=== PATIENT | male | born 1955 | race Caucasian/White ===

== ENCOUNTER 2016-05-27 06:28 | Observation (INO) | payer OTHER ==
[2016-05-21 11:34] VITALS: BMI 21.2
[~2016-05-27 06:28] MED LIST: DEXAMETHASONE SOD PHOSPHATE 10 MG/ML 1 ML VIAL IV ONE; HYDROmorphone 1 MG/ML 1 ML SYRINGE IVP PRN; LACTATED RINGERS 1,000 ML IV SCH; MIDAZOLAM 2 MG/2 ML VIAL IV PRN; ONDANSETRON 4 MG/2 ML VIAL IVP ONE
[2016-05-27] MEDS: LACTATED RINGERS 1,000 ML IV SCH ×2 (07:02→10:16)
[2016-05-27] MEDS ORDERED: LIDOCAINE 1% 20 ML VIAL (10MG/ML) FOR IV START INTRADERMA ONE (07:02)
[2016-05-27] MEDS ORDERED: SCOPOLAMINE 1.5MG/72HR PATCH TRANSDERM ONE (07:11)
[2016-05-27] MEDS ORDERED: MIDAZOLAM 2 MG/2 ML VIAL IV ONE (07:22)
[2016-05-27] MEDS ORDERED: fentaNYL (PF) 50 MCG/ML 2 ML AMP IV ONE (07:22)
[2016-05-27] MEDS ORDERED: MIDAZOLAM 2 MG/2 ML VIAL ONE (07:50)
[2016-05-27] MEDS ORDERED: CLINDAMYCIN 150 MG/ML 6 ML VIAL ONE (07:50)
[2016-05-27] MEDS ORDERED: SODIUM CHLORIDE 0.9% 1,000 ML BAG ONE (07:50)
[2016-05-27] MEDS ORDERED: LIDOCAINE 1% INJ 10MG/ML (20 ML MDV) ONE (07:50)
[2016-05-27] MEDS ORDERED: ROPIVACAINE 5 MG/ML 30 ML VIAL ONE (07:50)
[2016-05-27] MEDS ORDERED: SUCCINYLCHOLINE CHLORIDE 100 MG/5 ML SYR IV ONE (07:50)
[2016-05-27] MEDS ORDERED: PROPOFOL 10 MG/ML 20 ML VIAL IV ONE (07:50)
[2016-05-27] MEDS ORDERED: PHENYLEPHRINE-0.9% NACL SYG 1 MG/10 ML SYRINGE ONE (07:50)
[2016-05-27] MEDS ORDERED: LIDOCAINE 2%-EPI 1:100,000 20 ML VIAL ONE (07:50)
[2016-05-27] MEDS ORDERED: fentaNYL (PF) 50 MCG/ML 2 ML AMP ONE (07:50)
[2016-05-27] MEDS: CLINDAMYCIN 900 MG in DEXTROSE 5% IN WATER 50 ML IVPB ONE ×4 (07:50→09:56)
[2016-05-27] MEDS: CLINDAMYCIN 600 MG in SODIUM CHLORIDE 0.9% 1,000 ML IRRIGATION ONE ×2 (08:12→09:56)
[2016-05-27] MEDS ORDERED: ONDANSETRON 4 MG/2 ML VIAL IVP PRN (09:20)
[2016-05-27] MEDS ORDERED: HYDROmorphone 1 MG/ML 1 ML SYRINGE IVP PRN ×2 (09:20)
[2016-05-27] MEDS ORDERED: SENNOSIDES-DOCUSATE SODIUM 1 EACH TAB PO PRN (09:20)
[2016-05-27] MEDS ORDERED: TEMAZEPAM 15 MG CAP PO PRN (09:20)
[2016-05-27] MEDS ORDERED: traMADol 50 MG TAB PO PRN (09:23)
[2016-05-27 09:46] VITALS: RESP 16
[2016-05-27] MEDS: NICOTINE 21MG/24HR PATCH TRANSDERM SCH (10:16)
--- NOTE | 2016-05-27 10:37 | P.ONQ ---
Anesthesiology Proc Note - PNB - Peripheral Nerve Block Performed Right Interscalene Single Time Out Performed: Yes Indication: Acute Post-Operative Pain, Analgesia Specifically requested for management of pain by DrPatricia: Tigre Hernandez Sedation Type: Sedate with meaningful contact maintained Preparation: Sterile Prep Position: Supine Catheter: None Needle Gauge: Other (see comment) (22 stimuplex) Technique: Ultrasound Injectate: Other (see comment) (mixture 1% lidocaine 350 mg and deregmxs31.5mg ( 0.25%), epi 175 micrograms) Blood Aspirated: No Pain Paresthesia on Injection Noted: No Resistance on Injection: Normal Events: Uneventful and Well Tolerated
[2016-05-27] MEDS: HYDROmorphone 1 MG/ML 1 ML SYRINGE IVP PRN ×3 (17:19→23:57)
[2016-05-27] MEDS: CLINDAMYCIN 900 MG in DEXTROSE 5% IN WATER 50 ML IVPB SCH ×4 (17:21→22:13)
[2016-05-27] MEDS: traMADol 50 MG TAB PO PRN (20:31)
[2016-05-27] MEDS: hydrOXYzine PAMOATE 25 MG CAP PO PRN (22:12)
[2016-05-28] MEDS: traMADol 50 MG TAB PO PRN (00:05)
[2016-05-28] MEDS: LACTATED RINGERS 1,000 ML IV SCH ×4 (02:54→15:48)
[2016-05-28] MEDS: HYDROmorphone 1 MG/ML 1 ML SYRINGE IVP PRN ×2 (02:56→05:58)
[2016-05-28] MEDS: hydrOXYzine PAMOATE 25 MG CAP PO PRN ×2 (03:18→10:23)
[2016-05-28] MEDS: NICOTINE 21MG/24HR PATCH TRANSDERM SCH (07:48)
[2016-05-28] MEDS ORDERED: HYDROcodone/APAP 5-325MG 1 EACH TAB PO PRN ×2 (08:22)
--- NOTE | 2016-05-28 08:29 | P.DS ---
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 The patient presented to the orthopedic office for evaluation. After discussion and consideration patient elects to proceed with a rotator cuff repair. The patient is seen preoperatively by Dr. Jimenez and cleared for surgery. Patient is admitted to observation at [facility] on 05/27/2016 for right shoulder rotator cuff repair with distal clavicle excision and acromioplasty. The procedures performed without complication or sequelae. The patient is doing well postoperatively. Labs and vital signs are stable on day of discharge. On day of discharge patient's shoulder incision is healing well. There is minimal erythema. There is no drainage noted at this time. There is minimal soft tissue swelling to the right upper extremity. Patient has full hand, wrist , and elbow motion without difficulty or pain. Neurovascular status to the right upper extremity is intact. Patient is discharged to home in good condition. Patient Condition at Discharge: Stable Plan - Discharge Summary New Discharge Prescriptions: Cephalexin [Keflex] 500 mg PO Q8HR #15 cap HYDROcodone/APAP 5-325MG [[place] 5] 1 - 2 each PO Q4-6H PRN #60 tab PRN Reason: Pain Sennosides-Docusate Sodium [Senokot-S] 2 tab PO DAILY #30 tablet Discharge Medication List Ibuprofen [Motrin] 800 mg PO BID PRN 05/05/16 [History] traMADol HCL [Ultram] 50 - 100 mg PO Q4-6H PRN 05/21/16 [History] Cephalexin [Keflex] 500 mg PO Q8HR #15 cap 05/28/16 [Rx] HYDROcodone/APAP 5-325MG [[place] 5] 1 - 2 each PO Q4-6H PRN #60 tab 05/28/16 [Rx] Sennosides-Docusate Sodium [Senokot-S] 2 tab PO DAILY #30 tablet 05/28/16 [Rx] Follow up Appointment(s)/Referral(s): Tigre Hernandez DO [Doctor of Osteopathic Medicine] - 2 Weeks Patient Instructions/Handouts: *Surgery [facility] - Scopalamine Patch Instructions Activity/Diet/Wound Care/Special Instructions: Keep incision clean and dry Change dressing daily May shower in 3 days if no drainage from incision Keep arm sling/abductor pillow in place except when bathing Follow up with Dr. Hernandez in 2 weeks. Call [facility] with any questions or concerns. [phone] Discharge Disposition: HOME SELF-CARE
[2016-05-28] MEDS ORDERED: HYDROcodone/APAP 7.5-325MG 1 EACH TAB PO PRN ×2 (13:36)
[2016-05-28 16:25] VITALS: BP 132/60; PULSE 72; TEMP 97.3
--- NOTE | 2016-05-29 09:23 | OP ---
DATE OF SERVICE: 05/27/2016 SURGEON: AKHIL GARCIA DO CUBING MACHINE TENDER: Yadi Valles NP PREOPERATIVE DIAGNOSIS: Complete tear of the supraspinatus and infraspinatus tendons of the right shoulder. POSTOPERATIVE DIAGNOSIS: Complete tear of the supraspinatus and infraspinatus tendons of the right shoulder. OPERATION: Resection of the distal right clavicle, decompression acromioplasty, and right rotator cuff repair utilizing Arthrex bioabsorbable anchor. ANESTHESIA: ESTIMATED BLOOD LOSS: SPECIMENS REMOVED: COMPLICATIONS: OPERATIVE FINDINGS: DESCRIPTION OF PROCEDURE: Patient was taken to the operative suite, placed in supine position. Periosteal regional block was carried out of the right shoulder in the periosteal area. General inhalation anesthesia was performed by the department of anesthesiology. The patient secured on the surgical table, placed in a beach chair position and appropriately padded and secured. A Betadine prep was carried out over the right shoulder and sterile drapes applied in the usual manner. An anterolateral incision was developed over the distal clavicle and acromion. Sharp dissection through the subcutaneous tissue was performed. The superior acromioclavicular ligament was identified and dissected. The distal 1 cm of the clavicle was then excised. The anterior deltoid muscle was dissected along the musculotendinous junction gaining access to the lateral acromion. The anterior lateral tangential acromioplasty was performed at this time. The underlying structures were smoothed with a bone rasp. The area was irrigated. Direct visualization of the humeral head and rotator cuff was noted. Evidence of the supra and infraspinatus tendons was present. With the arm abducted, the 5.5 Arthrex anchor screw was inserted and secured in position repairing the rotator cuff. The remaining portions of the cuff were then identified and repaired at this time. The area was irrigated copiously. The deltoid musculature was approximated back into the acromion with #1 Ethibond suture. Deep fascia was reapproximated with #1 Ethibond suture. The subcutaneous tissue was approximated with 2-0 Vicryl suture and 3-0 Quill suture was utilized in a subcuticular closure. Dermabond applied on the wound and the wound sealed. Betadine, Adaptic, sterile pressure dressing was applied. Patient was placed in an abductor pillow splint and transferred to recovery room in satisfactory postop condition. GROSS PATHOLOGY: There was evidence of a complete tear of the supraspinatus and infraspinatus tendon. MTDD
== END 2016-05-28 20:26 | disposition home or self-care (01) ==
LOC: OR 06:28 → 3SUR 09:13 → OR 21:51
PROVIDERS: ADMIT Orthopaedic Surgery; ATTEND Orthopaedic Surgery
DX: M75.121 Complete rotator cuff tear or rupture of right shoulder, not specified as traumatic (principal); M75.41 Impingement syndrome of right shoulder; F17.210 Nicotine dependence, cigarettes, uncomplicated
CPT/HCPCS: 64415; 23420; G0378 ×2; C1713 ×2; S4990 ×2; J2250; J1100; J2405; J2001; J3010; J1170 ×2; J2795; J2370; J0330; J2704; 96361; 96365; 96375; 96376

== ENCOUNTER → 2016-08-11 | Outpatient (CLI) | payer OTHER ==
--- NOTE | 2016-08-11 19:59 | CT ---
EXAMINATION TYPE: CT soft tissue neck w con DATE OF EXAM: 08/11/2016 7:37 PM COMPARISON: 01/13/2016 HISTORY: Left sided facial and jaw swelling x [address] DLP: 604.00 mGycm Automated exposure control for dose reduction was used. CONTRAST: CT scan of the neck is performed following with IV Contrast, patient injected with 100 mL of Omnipaqu e 300. Axial images are obtained, coronal and sagittal reformatted images are reviewed. FINDINGS: There is fairly normal aeration of the maxillary ethmoid sphenoid sinuses. There is a small mucous re tention cyst in the left maxillary sinus. There is a 1.5 cm fluid collection adjacent to the angle of the mandible on the left side. This is on the lateral aspect and appears to wrap around the angle of the mandible. The parotid glands are symmetric. Submandibular salivary glands are symmetric. There is normal contrast opacification of carotid arteri es and jugular veins. Thyroid gland is symmetric. Superior mediastinum appears normal. I see no cervical adenopathy. There are anterior and posterior cervical lymph nodes that measure less than 10 mm. There is no evidence of a pharyngeal mass. Epiglottis is normal. Subglottic trachea appe ars normal. Tonsils and adenoids appear normal.: IMPRESSION: There is a fluid collection around the angle of the mandible on the left side consistent with an abscess. This is much smaller than the old CT scan of 01/13/2016. I see no bone destruction t o suggest osteomyelitis.
--- NOTE | 2016-08-11 20:03 | CT ---
EXAMINATION TYPE: CT facial bones w con DATE OF EXAM: 08/11/2016 7:37 PM COMPARISON: NONE HISTORY: Left sided facial and jaw swelling x [address] DLP: 604.00 mGycm Automated exposure control for dose reduction was used. CONTRAST: CT scan of the facial bones is performed with IV Contrast, patient injected with 100 mL of Omnipaque 300. TECHNIQUE: CT scan of the sinuses is performed without contrast, axial images are obtained, coronal r eformatted images are also reviewed. FINDINGS: Orbital margins are intact. There is no evidence of orbital mass. There is a 1 cm mucous re tention cyst in the posterior left maxillary sinus. The maxilla is intact. There is no evidence of a blowout fracture. There is left side patency of the ostiomeatal complex. There is mucosal thickening at the right ostiomeatal complex. The mandibular ring is intact. There is a fluid collection wrapping around the angle of the mandible on the left side that measures overall 2 cm. There is no evidence for fracture. Nasal bone is intact. IMPRESSION: Small fluid collection around the angle of the mandible on the left side consistent with an abscess. Minimal maxillary sinusitis. No pathologic enhancement.
== END | disposition home or self-care (01) ==
LOC: RADCTMAIN 18:55
PROVIDERS: ATTEND Nurse Practitioner
DX: R22.0 Localized swelling, mass and lump, head (principal)
CPT/HCPCS: 70487; 70491; Q9967

== ENCOUNTER → 2016-08-19 | Outpatient (CLI) | payer OTHER ==
[2016-08-19 12:55] LABS: Blood Urea Nitrogen 21 mg/dL (9-20); Non-African American GFR(MDRD) >60 (>60 ml/min/1.73 sqM)
== END | disposition home or self-care (01) ==
LOC: LABWHC1 11:53
PROVIDERS: ATTEND Physical Medicine & Rehabilitation
DX: S13.9XXD Sprain of joints and ligaments of unspecified parts of neck, subsequent encounter (principal); G89.11 Acute pain due to trauma; M47.817 Spondylosis without myelopathy or radiculopathy, lumbosacral region; M79.1 Myalgia; M47.812 Spondylosis without myelopathy or radiculopathy, cervical region; M50.322 Other cervical disc degeneration at C5-C6 level; M43.12 Spondylolisthesis, cervical region; M25.511 Pain in right shoulder; M51.17 Intervertebral disc disorders with radiculopathy, lumbosacral region; Z98.890 Other specified postprocedural states
CPT/HCPCS: 36415; 82565; 84520

== ENCOUNTER 2016-09-16 11:50 | Day surgery (SDC) | payer OTHER ==
[2016-09-16 13:06] VITALS: BP 144/68; PULSE 59; RESP 20; TEMP 98.4
--- NOTE | 2016-09-16 14:24 | US ---
EXAMINATION TYPE: US fine needle aspiration DATE OF EXAM: 09/16/2016 2:13 PM HISTORY: Fluid collection, history of osteomyelitis at the level of the left mandible Correlation to CT 11 August 2016 FINDINGS: Maximal barrier technique was utilized, ultrasound used with sterile technique. The skin o verlying a suitable path to the patient's mass was localized with ultrasound and the overlying skin p repped and draped. Ultrasound was utilized with sterile technique. Lidocaine was used for local ane sthesia. 25 needle was advanced under direct ultrasound guidance and attempted aspiration obtained of the fluid collection at the level of the mandible, needle was upsized to 21-gauge and repeat attempt obtained. Minimal specimen in the hub of the needle is noted. Specimen submitted in culture media t o microbiology, slide created. Following the procedure, hemostasis achieved and the patient is disch arged in stable condition without complication. Impression: status POST ULTRASOUND GUIDED FINE-NEEDLE ASPIRATION OF area adjacent to the left mandibl e, laboratory analysis IS PENDING. THIS PROCEDURE IS PERFORMED BY THE UNDERSIGNED.
== END 2016-09-16 14:10 | disposition home or self-care (01) ==
LOC: RADPROMAIN 11:50
PROVIDERS: ATTEND Otolaryngology
DX: K11.8 Other diseases of salivary glands (principal)
CPT/HCPCS: 10022; 76942; 87070; 87075; 87205; 88173

== ENCOUNTER 2016-11-09 19:28 | Emergency (ER) | payer OTHER ==
[2016-11-09] MEDS ORDERED: diphenhydrAMINE 50 MG/ML 1 ML VIAL IVP STA ×2 (20:18→21:43)
[2016-11-09] MEDS ORDERED: cefTRIAXone 2,000 MG in SODIUM CHLORIDE 0.9% 100 ML IVPB STA (20:26)
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
[2016-11-09 21:47] VITALS: BP 138/74; PULSE 57; RESP 16; TEMP 98.3
== END 2016-11-09 21:56 | disposition home or self-care (01) ==
LOC: EC 19:28
DX: M27.2 Inflammatory conditions of jaws (principal); Z79.2 Long term (current) use of antibiotics; Z79.899 Other long term (current) drug therapy; Z88.0 Allergy status to penicillin; Z88.1 Allergy status to other antibiotic agents; Z88.5 Allergy status to narcotic agent; F17.200 Nicotine dependence, unspecified, uncomplicated
CPT/HCPCS: 96365; 96375; 96376; 99282; J1200; J0696

== ENCOUNTER → 2019-02-17 | Outpatient (CLI) | payer OTHER ==
[2019-02-17 18:05] LABS: Amorphous Sediment,Urine Rare /hpf; Appearance,Urine Clear (Clear); Bilirubin,Urine Negative (Negative); Blood,Urine Negative (Negative); Color,Urine Yellow; Glucose,Urine (UA) Negative (Negative); Hyaline Casts,Urine 1 /lpf (0-2); Ketones,Urine Negative (Negative); Leukocyte Esterase,Urine Negative (Negative); Mucus,Urine Occasional /hpf; Nitrite,Urine Negative (Negative); Protein,Urine Negative (Negative); RBC,Urine 1 /hpf (0-5); Specific Gravity,Urine 1.026 (1.001-1.035); Squamous Epithelial Cell,Urine 1 /hpf (0-4); Urobilinogen,Urine <2.0 mg/dL (<2.0); WBC,Urine <1 /hpf (0-5)
--- NOTE | 2019-02-18 15:30 | XR ---
EXAMINATION TYPE: XR chest 2V DATE OF EXAM: 02/17/2019 COMPARISON: 01/10/2016 INDICATION: Presurgical clearance TECHNIQUE: Frontal and lateral views of the chest are obtained. FINDINGS: The heart size is normal. The pulmonary vasculature is normal. Punctate granuloma is likely present within the right peripheral midlung. Lungs are otherwise clear.. IMPRESSION: 1. No acute pulmonary process. 2. Suspected granuloma right midlung. Follow-up chest x-ray in 3 months is recommended to confirm sta bility.
[2019-02-21 09:49] LABS: Anabasine Urine <2.0 ng/mL (<2.0)
== END | disposition home or self-care (01) ==
LOC: LABPAT 15:48
PROVIDERS: ATTEND Orthopaedic Surgery Orthopaedic Surgery of the Spine
DX: Z01.818 Encounter for other preprocedural examination (principal); M51.36 Other intervertebral disc degeneration, lumbar region; Z11.2 Encounter for screening for other bacterial diseases; R91.8 Other nonspecific abnormal finding of lung field
CPT/HCPCS: 71046; 80323; 81003; 85730; 87070

== ENCOUNTER 2019-02-23 07:30 | Inpatient (IN) | payer OTHER ==
[2019-02-17 14:26] VITALS: BMI 20.9
[~2019-02-23 07:30] MED LIST changes: +BACITRACIN 50,000 UNIT, POLYMYXIN B 500,000 UNIT in SODIUM CHLORIDE 0.9% IRRIGATIO 1,00... IRRIGATION ONE; +CLINDAMYCIN 900 MG in DEXTROSE 5% IN WATER 50 ML IVPB ONE; -DEXAMETHASONE SOD PHOSPHATE 10 MG/ML 1 ML VIAL IV ONE; -HYDROmorphone 1 MG/ML 1 ML SYRINGE IVP PRN; -LACTATED RINGERS 1,000 ML IV SCH; +LIDOCAINE 1% 20 ML VIAL (10MG/ML) FOR IV START INTRADERMA PRN; -MIDAZOLAM 2 MG/2 ML VIAL IV PRN; -ONDANSETRON 4 MG/2 ML VIAL IVP ONE; +ONDANSETRON 4 MG/2 ML VIAL IVP PRN
[2019-02-23] MEDS: LACTATED RINGERS 1,000 ML IV SCH (09:09)
[2019-02-23] MEDS ORDERED: ePHEDrine SULFATE/0.9% NACL/PF 50 MG/5 ML SYRINGE IV ONE (09:47)
[2019-02-23] MEDS ORDERED: GLYCOPYRROLATE 0.2 MG/ML 2 ML VIAL ONE (09:47)
[2019-02-23] MEDS ORDERED: SODIUM CHLORIDE 0.9% IRRIG 1,000 ML BTL IRRIGATION ONE (09:47)
[2019-02-23] MEDS ORDERED: SUCCINYLCHOLINE CHLORIDE 100 MG/5 ML SYR IV ONE (09:47)
[2019-02-23] MEDS ORDERED: HEPARIN SODIUM,PORCINE 10,000 UNIT/ML 1 ML VIAL ONE (09:47)
[2019-02-23] MEDS ORDERED: PHENYLEPHRINE-0.9% NACL SYG 1 MG/10 ML SYRINGE ONE (09:47)
[2019-02-23] MEDS ORDERED: MIDAZOLAM 2 MG/2 ML VIAL ONE (09:47)
[2019-02-23] MEDS ORDERED: LIDOCAINE 1% INJ 10MG/ML (20 ML MDV) ONE (09:47)
[2019-02-23] MEDS ORDERED: NEOSTIGMINE 1 MG/ML 10 ML VIAL ONE (09:47)
[2019-02-23] MEDS ORDERED: ROCURONIUM BROMIDE 10 MG/ML 10 ML VIAL IV ONE (09:47)
[2019-02-23] MEDS ORDERED: PROPOFOL 10 MG/ML 20 ML VIAL IV ONE (09:47)
[2019-02-23] MEDS ORDERED: fentaNYL (PF) 50 MCG/ML 2 ML AMP ONE (09:47)
[2019-02-23] MEDS ORDERED: KETAMINE 10 MG/ML 20 ML VIAL ONE (09:47)
[2019-02-23] MEDS ORDERED: HYDROmorphone (PF) 1 MG/ML ONE (09:47)
[2019-02-23] MEDS ORDERED: BUPIVACAINE (PF) 0.25% 30 ML VIAL SQ ONE (10:43)
[2019-02-23] MEDS ORDERED: LACTATED RINGERS 1,000 ML IV ONE ×2 (11:36→12:35)
--- NOTE | 2019-02-23 13:49 | XR ---
EXAM TYPE: LUMBAR SPINE X RAY SERIES COMPARISON: NONE HISTORY: Postop TECHNIQUE: One view is submitted. FINDINGS: Intraoperative image is obtained. IMPRESSION: 1. Intraoperative image
[2019-02-23] MEDS: HYDROmorphone 0.5 MG/0.5 ML SYRINGE IVP PRN ×3 (14:00→14:18)
[2019-02-23] MEDS ORDERED: BENZOCAINE/MENTHOL LOZENG 1 EACH LOZENGE MUCOUS MEM PRN (14:04)
[2019-02-23] MEDS ORDERED: MAGNESIUM HYDROXIDE 2,400 MG/10 ML CUP PO PRN (14:04)
[2019-02-23] MEDS ORDERED: ONDANSETRON 4 MG/2 ML VIAL IVP PRN (14:05)
[2019-02-23] MEDS ORDERED: HYDROcodone/APAP 5-325MG 1 EACH TAB PO PRN (14:05)
--- NOTE | 2019-02-23 14:21 | FL ---
EXAMINATION TYPE: FL guidance operating room DATE OF EXAM: 02/23/2019 HISTORY: Flouroscopy time 58 seconds of fluoroscopy provided. IMPRESSION: 1. Fluoroscopy time.
--- NOTE | 2019-02-23 14:24 | P.OP ---
Date of Procedure: 02/23/19 Preoperative Diagnosis: Spinal stenosis L3 4 L4 5, lateral listhesis L4 5, recurrent stenosis L4 5, degenerative disc disease, low back pain, lower extremity radiculopathy Postoperative Diagnosis: Same Anesthesia: GETA Pathology: none sent Condition: stable Disposition: PACU Description of Procedure: DESCRIPTION OF PROCEDURE(S): BRIEF OPERATIVE NOTE Preoperative Diagnosis: Spinal stenosis L3 4 L4 5, lateral listhesis L4 5, recurrent stenosis L4 5, degenerative disc disease, low back pain, lower extremity radiculopathy Postoperative Diagnosis:Spinal stenosis L3 4 L4 5, lateral listhesis L4 5, recurrent stenosis L4 5, degenerative disc disease, low back pain, lower extremity radiculopathy Procedure: Revision laminectomy and decompression L4 5 Laminectomy and decompression at L3 4 Minimally invasive Posterior lateral decompression and facet fusion at L3 4 and L4 5 Minimally invasive Transforaminal lumbar interbody fusion for a 360 fusion at L3 4 and L4 5 Discectomy for decompression at L3 4 and L4 5 Placement of interbody graft at L3 4 and L4 5 Local autogenous bone grafting Aspiration of bone marrow aspirate. The ankle and vertebral body of L3 Use of Cell Saver Use of bone graft extenders Surgeon: Dr. Bradford Corn Popper: Zeynep Benson is present throughout the entire the case persistence during positioning, dissection, exposure, visualization, and all crucial elements of the case as well as closure. Anesthesia: General anesthesia Estimated blood loss: Approximately 350 mL with 144 given back through Cell Saver Complications: None apparent Components implanted: K2M minimally evasive Fenwick pedicle screw system with 6 screws measuring 6.5 x 50 mm and 2 [place] interbody cages and 2 rods with 10 mL of Francis bone graft substitute and 30 mL of DBX bone fibers to supplement the local autogenous bone graft Disposition: To recovery room in good stable condition. OPERATIVE INDICATIONS The patient has had long-standing issues in their lower back and lower extremities. In the past it had laminectomy at L4 5 for lower extremity radiculopathy with disc herniation. He had initially done well with this however developed recurrent stenosis and herniation as well as adjacent level degeneration and stenosis. He is having worsening symptoms despite aggressive conservative care. He had significant stenosis and lower extremity radiculopathy which was causing him significant debility and decreasing his ability to do any activities. His imaging correlated well with his low back and lower extremity symptoms. The patient has been through conservative treatment. Despite aggressive conservative care he is not having any prolonged benefit. We discussed various treatment options including surgery, and the patient wishes to proceed with surgery We discussed the risk, patient's alternatives and benefits of surgery including but not limited to, risk of bleeding risk of infection, risk of need for further surgery, risk of decreased, loss of motion, muscle function, malunion nonunion, hardware failure, nerve damage, paralysis, heart attack, blindness and . OPERATIVE SUMMARY After discussing all the risks, patient alternatives and benefits at length, the patient elected to proceed with surgical intervention, signed informed consent, and presented for their procedure. The patient was seen and examined in the preoperative holding area and the surgical site was marked. The patient was given antibiotics and brought to the operating room. The patient was sedated and intubated by anesthesia in standard fashion. The patient was positioned on to the operating room table in a prone position on the appropriate frame which was well-padded and well molded. We were careful to pad any bony prominences and pressure points. We were careful to maintain the patient's cervical spine and good neutral alignment and position throughout. The patient was prepped and draped in a normal standard fashion. An appropriate timeout and keystone protocol performed. We were able to proceed with the surgery. The local wound area was infiltrated with local anesthetic. I was able utilize C-arm guidance to establish appropriate position over the pedicles bilaterally at the appropriate levels at L3 4 and 5. With the appropriate levels confirmed was able to make small stab incisions over the appropriate pedicle sites bilaterally. Utilizing C-arm in his house able to establish a Jamshidi needle over the lateral aspect of the pedicle and advanced the trocar into the pedicle being careful not to breech superiorly inferiorly medially or laterally. Position was confirmed regularly with AP and lateral images on C-arm. I was able to establish the trocar into the pedicle appropriately into the posterior aspect of the vertebral body bilaterally at the appropriate levels. This was done at each of the pedicle positions and each of the vertebrae. At L3 on the right I was able to withdraw approximately 20 mL of bone marrow aspirate for supplementation of the bone graft. I was able place the guidewire into the trocar and into the vertebral body appropriately under C- arm guidance. Dissection was taken down over the wire to the appropriate starting position for the screw placed. The appropriate length screw was chosen, threaded over the guidewire and screwed appropriately into the pedicle and vertebral body under C-arm guidance in excellent alignment and position with good bony purchase. This is done at each of the screw sites at the appropriate levels. With the screws intact I extended the incision to connect the screw hole sites on the most symptomatic side on the right. I dissected down to establish access over the pars and lamina to the base of the spinous process. I was able to expose the facet joint. The capsule the facet was taken down and showed some facet arthrosis at the joint. I was able to use a combination of curettes and Kerrison rongeurs and a high-speed drill to take down the facet joint and do a facetectomy. Partial laminectomy was also performed. At L4 5 had had a previous laminectomy and I did a revision laminectomy at that level. I was able get excellent foraminal decompression and central decompression with undermining across midline to perform a laminectomy centrally and contralaterally. As able get good central decompression. The ligamentum flavum was taken down to further decompress centrally and at bilateral neural foramen. I was able to expose the disc space and visualize the traversing nerve root. Note was made of some disc protrusion at the level causing further compression of the nerve root. I was able to establish a annulotomy at the appropriate level protecting soft tissue and neural structures. Note was made of some disc desiccation at the disc. I performed a complete discectomy with accommodation of curettes and rasps and scrapers. I was able get good endplate preparation at the disc space. I sized for the appropriate size interbody spacer protecting the soft tissue and neural structures. The wound was copiously irrigated and suctioned dry. I did this first at L4 5 and then at L3 4. There is no evidence of any dural tear or leak. I was able to pack the disc space with local autogenous bone graft as well as a small amount of bone graft which was also placed into the interbody cage itself. Protecting the soft tissue structures and neural structures I was able place the interbody cage in good alignment and good position with good fit and fill at the interbody space. His position was confirmed with C-arm guidance. This was done first at L4 5 and then at L3 4 Good hemostasis maintained. There is no evidence of any dural tear or leak. The wound was irrigated and suctioned dry. With the hardware intact, intraoperative C-arm imaging was again taken which showed good alignment and position of the hardware at the appropriate levels at L3 4 and L4 5. We were then able to measure, contour and place the rods and appropriate hardware bilaterally. I was able to place capcrews, tighten them down, and torque them with the torque screwdriver appropriately. With this intact I was able to place the local autogenous bone graft with additional bone graft enhancer as necessary into the posterior lateral gutters over the decorticated facet joints. The remainder of the bone graft was placed over the facet joint on the contralateral side after taking down the facet joint capsule. With the bone graft intact, a stable construct, and good decompression at the appropriate levels, we were able to proceed with closure. Good hemostasis was maintained. There is no evidence of dural tear or leak. The fascia was closed for a watertight closure. he subcuticular tissue was closed with absorbable suture. The wound was cleaned and dried and dressed with the appropriate dressing. The drapes were broken down. The patient was gently rolled back onto their hospital bed being careful to maintain their cervical spine and good neutral alignment and position. They were woken up by anesthesia, extubated, and brought to the recovery room in good stable condition. The patient will be admitted to the hospital for appropriate postoperative care, medical management and monitoring. We will continue to follow them closely about the postoperative course.
[2019-02-23] MEDS ORDERED: fentaNYL (PF) 50 MCG/ML 2 ML AMP IVP ONE ×2 (14:25→14:37)
[2019-02-23] MEDS: SODIUM CHLORIDE 0.9% 1,000 ML IV SCH (15:17)
[2019-02-23] MEDS: HYDROmorphone 1 MG/ML 1 ML SYRINGE IVP PRN ×3 (16:11→23:32)
[2019-02-23] MEDS: CLINDAMYCIN 900 MG in DEXTROSE 5% IN WATER 50 ML IVPB SCH ×2 (17:40)
[2019-02-24] MEDS: LACTATED RINGERS 1,000 ML IV SCH ×2 (00:44→23:56)
[2019-02-24] MEDS: CLINDAMYCIN 900 MG in DEXTROSE 5% IN WATER 50 ML IVPB SCH ×2 (02:50)
[2019-02-24] MEDS: SODIUM CHLORIDE 0.9% 1,000 ML IV SCH ×2 (04:31→16:26)
[2019-02-24] MEDS: HYDROmorphone 1 MG/ML 1 ML SYRINGE IVP PRN (04:45)
[2019-02-24] MEDS: traMADol 50 MG TAB PO PRN ×3 (05:44→22:14)
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
[2019-02-24] MEDS: HYDROcodone/APAP 5-325MG 1 EACH TAB PO PRN ×4 (07:23→20:35)
[2019-02-24] MEDS: SENNOSIDES-DOCUSATE SODIUM 1 EACH TAB PO SCH (07:23)
[2019-02-24 08:23] LABS: Basophils # (A) 0.2 k/uL (0-0.2); Basophils % (A) 2 %; Eosinophils % (A) 0 %; HCT 44.1 % (39.0-53.0); HGB 14.2 gm/dL (13.0-17.5); Lymphocytes # (A) 0.9 k/uL (1.0-4.8); Lymphocytes % (A) 11 %; MCH 30.7 pg (25.0-35.0); MCHC 32.2 g/dL (31.0-37.0); MCV 95.4 fL (80.0-100.0); Mean Platelet Volume 7.4; Monocytes # (A) 0.7 k/uL (0-1.0); Monocytes % (A) 8 %; Neutrophils # (A) 6.8 k/uL (1.3-7.7); Neutrophils % (A) 78 %; Platelet Count 170 k/uL (150-450); RBC 4.63 m/uL (4.30-5.90); WBC 8.7 k/uL (3.8-10.6)
[2019-02-24 08:49] LABS: African American GFR (CKD) >90 (>60 ml/min/1.73 sqM); Anion Gap 7 mmol/L; Blood Urea Nitrogen 12 mg/dL (9-20); Calcium 8.5 mg/dL (8.4-10.2); Carbon Dioxide 27 mmol/L (22-30); Chloride 103 mmol/L (98-107); Glucose 120 mg/dL (74-99); Potassium 4.1 mmol/L (3.5-5.1); Sodium 137 mmol/L (137-145)
--- NOTE | 2019-02-24 08:53 | P.PN ---
Progress Note - Text Progress Note Date: 02/24/19 Postoperative day #1 Patient is seen and examined today at bedside. The patient has some pain around the surgical site as expected. Pain is being controlled with medication. He has been able stand and get up to the chair with assistance and a walker. He is having significant pain in his back. There is no drainage. He denies any nausea or vomiting. Physical Exam Afebrile with stable vital signs Abdomen is soft nontender. Chest has good excursion deep and space expiration The incision site is clean dry and intact. No erythema there is no purulence. There is some diffuse swelling without erythema. There is no drainage. Extremities have not had neurologic change from prior to surgery. He has sustained dorsal flexion plantar flexion and EHL intact Calves and thighs were soft nontender without evidence of DVT. Assessment/Plan Postoperative day 1 status post minimally invasive decompression fusion at L3 4 and L4 5 for his spinal stenosis with disc degeneration disc herniation lower extremity radiculopathy Patient is progressing as expected from the surgery. He has been able to get up as having significant pain and spasm in his back. This should settle appropriately with medication in the next day or 2. We will continue to increase the patient's mobilization with therapy. We will see if we can get him an ice pack cooler. We will continue pain control with oral or IV medications. We'll continue to follow patient closely.
[2019-02-24] MEDS: HYDROmorphone 0.5 MG/0.5 ML SYRINGE IVP PRN ×2 (10:11→14:16)
[2019-02-25] MEDS: HYDROcodone/APAP 5-325MG 1 EACH TAB PO PRN ×6 (00:06→23:15)
[2019-02-25] MEDS: traMADol 50 MG TAB PO PRN ×2 (05:08→11:16)
[2019-02-25] MEDS: SODIUM CHLORIDE 0.9% 1,000 ML IV SCH ×2 (05:50→21:10)
--- NOTE | 2019-02-25 07:59 | P.PN ---
Subjective Principal diagnosis: Postop back pain This is a continue progress on a 64-year-old white male who is essentially postop day #2 for lumbar repair. The patient states significant improvement. Still some right buttock discomfort. Pain is controlled he slept better yesterday no new voiding difficulties. Objective - Vital Signs Vital signs: Vital Signs Temp 98.4 F 02/25/19 07:00 Pulse 72 02/25/19 07:00 Resp 17 02/25/19 07:00 BP 112/65 02/25/19 07:00 Pulse Ox 97 02/25/19 07:00 Intake & Output 02/24/19 02/25/19 02/25/19 18:59 06:59 18:59 Intake Total 240 150 Output Total 1450 Balance -1210 150 Intake: Intake, IV Titration 150 Amount Sodium Chloride 0.9% 1, 150 000 ml @ 75 mls/hr IV . [id number] BLAZE Rx#:[id number] Oral 240 Output: Urine 1450 Other: Voiding Method Indwelling Catheter # Voids 2 - Constitutional General appearance: Present: average body habitus - EENT Eyes: Absent: abnormal pupil - Neck Neck: Absent: lymphadenopathy - Respiratory Respiratory: bilateral: CTA - Cardiovascular Rhythm: regular Heart sounds: normal: S1, S2 Abnormal Heart Sounds: Absent: S3 Gallop - Gastrointestinal General gastrointestinal: Present: soft. Absent: tenderness - Integumentary Integumentary: Present: cellulitis - Psychiatric Psychiatric: Present: A&O x's 3. Absent: appropriate affect - Labs CBC & Chem 7: 02/24/19 07:12 02/24/19 07:12 Labs: Abnormal Lab Results - Last 24 Hours (Table) 02/24/19 02/24/19 Range/Units 07:12 07:12 Lymphocytes # 0.9 L (1.0-4.8) k/uL Glucose 120 H (74-99) mg/dL Assessment and Plan (1) Spinal stenosis Current Visit: Yes Status: Acute Code(s): M48.00 - SPINAL STENOSIS, SITE UNSPECIFIED SNOMED Code(s): 39588089 Plan: Continue current regimen of treatment. Defer pain control to surgery. Anticipate discharge in next 24 hours. Follow-up in one week as needed.
--- NOTE | 2019-02-25 08:03 | P.PN ---
Progress Note - Text Progress Note Date: 02/25/19 Postoperative day #2 Patient is seen and examined today at bedside. The patient has some pain around the surgical site as expected. Pain is being controlled with medication.\ He is feeling better today in terms of his pain in his lower extremities. He is not yet had a bowel movement. He is voiding freely. He said his mobilization is improving. Physical Exam Afebrile with stable vital signs Abdomen is soft nontender. Chest has good excursion deep and space expiration The incision site is clean dry and intact. No erythema there is no purulence. A surgical site at his back site is clear. He has some diffuse swelling without erythema or drainage Extremities have not had neurologic change from prior to surgery. He has sustained dorsal flexion plantarflexion and EHL intact Calves and thighs were soft nontender without evidence of DVT. Assessment/Plan Postoperative day #2 status post no invasive decompression and fusion L3 4 L4 5 for severe stenosis with lower extremity radiculopathy Patient is progressing as expected from the surgery. He has not yet had a bowel movement and hopefully his bowels well mobilize as he continues to increase his mobility. If he continues to improve he may be able to go home tomorrow. We will continue to increase the patient's mobilization with therapy. We will continue pain control with oral or IV medications. We'll continue to follow patient closely.
[2019-02-25] MEDS: SENNOSIDES-DOCUSATE SODIUM 1 EACH TAB PO SCH (08:33)
[2019-02-25 17:24] VITALS: RESP 16
[2019-02-26] MEDS: HYDROcodone/APAP 5-325MG 1 EACH TAB PO PRN ×3 (03:11→11:53)
[2019-02-26] MEDS: traMADol 50 MG TAB PO PRN ×2 (05:54→14:29)
[2019-02-26] MEDS: LACTATED RINGERS 1,000 ML IV SCH (07:13)
[2019-02-26] MEDS: SENNOSIDES-DOCUSATE SODIUM 1 EACH TAB PO SCH (07:33)
[2019-02-26 07:40] VITALS: BP 125/67; PULSE 73; TEMP 99.2
[2019-02-26] MEDS: SODIUM CHLORIDE 0.9% 1,000 ML IV SCH (08:55)
--- NOTE | 2019-02-26 10:46 | P.DS ---
Providers Date of admission: 02/23/19 08:03 Attending physician: Bijal Bradford Consults: 02/23/19 14:05 Consult Physician Routine Consulting Provider: Ricardo Jimenez Consult Reason/Comments: medical management Do you want consulting provider notified?: Yes Primary care physician: Stated None Hospital Course: The patient presented on the day of admission as per their operative note. He had severe spinal stenosis with disc degeneration and lower extremity radiculopathy and underwent his decompression and fusion as per his operative note. He feels he is making progress. His legs are doing better and is more ambulatory now. Physical Exam The incision site is clean dry and intact. There is no erythema no drainage. There is no purulence no evidence of infection. There is some diffuse swelling that is no erythema or drainage. Abdomen soft and nontender. Chest has good excursion with deep inspiration and expiration. The patient has active and passive range of motion intact at the upper and lower extremities. There is no acute change in neurologic status. He has sustained dorsal flexion plantar flexion and EHL. He is ambulatory around the hallways. Hospital Course Postoperative day #3 status post minimally invasive decompression and fusion L3 4 L4 5 for his spinal stenosis with lower extremity radiculopathy The patient has been making good progress postoperatively. They have completed the prophylactic antibiotics without any signs or symptoms of infection. The patient has been able to advance their diet, and is tolerating diet adequately. The pain was initially controlled with IV medications and is now controlled appropriately with oral medications. The patient has been able to increase their mobilization. The patient has progressed appropriately. I think they are in good stable condition for discharge today. They will be sent home with appropriate prescriptions. I answered their questions to the best of my ability in a language that they can understand and they are agreeable with the plan. They will follow up as directed in approximately 2 weeks or sooner if he is having any problems. Patient Condition at Discharge: Good Plan - Discharge Summary Discharge Rx Participant: Yes New Discharge Prescriptions: New HYDROcodone/APAP 5-325MG [[place] 5] 1 - 2 each PO Q4H #56 tab traMADol HCL [Ultram] 50 mg PO Q6HR PRN 3 Days #12 tab PRN Reason: Breakthrough Pain No Action traMADol HCL [Ultram] 50 mg PO Q6HR PRN PRN Reason: Pain Doxycycline [Vibramycin] 50 mg PO DAILY Celecoxib [CeleBREX] 200 mg PO DAILY Discharge Medication List Celecoxib [CeleBREX] 200 mg PO DAILY 02/17/19 [History] Doxycycline [Vibramycin] 50 mg PO DAILY 02/17/19 [History] traMADol HCL [Ultram] 50 mg PO Q6HR PRN 02/17/19 [History] HYDROcodone/APAP 5-325MG [[place] 5] 1 - 2 each PO Q4H #56 tab 02/26/19 [Rx] traMADol HCL [Ultram] 50 mg PO Q6HR PRN 3 Days #12 tab 02/26/19 [Rx] Follow up Appointment(s)/Referral(s): Bijal Bradford DO [Doctor of Osteopathic Medicine] - 03/08/19 9:45 am Ricardo Jimenez MD [STAFF PHYSICIAN] - 03/04/19 10:10 am [facility], [NON-STAFF] - As Needed Patient Instructions/Handouts: Anterior Posterior Spinal Fusion (DC)
== END 2019-02-26 14:44 | disposition home health service (06) | DRG 455 ==
LOC: 2ORMAIN 08:03 → 4SSUR 14:07
PROVIDERS: ADMIT Orthopaedic Surgery Orthopaedic Surgery of the Spine; ATTEND Orthopaedic Surgery Orthopaedic Surgery of the Spine
PROC: 01NB0ZZ Release Lumbar Nerve, Open Approach (ICD-10-PCS; principal; 2019-02-23 09:15)
PROC: 0SG10J1 Fusion of 2 or more Lumbar Vertebral Joints with Synthetic Substitute, Posterior Approach, Posterior Column, Open Approach (ICD-10-PCS; principal; 2019-02-23 09:15)
PROC: 0ST20ZZ Resection of Lumbar Vertebral Disc, Open Approach (ICD-10-PCS; principal; 2019-02-23 09:15)
PROC: 0SG10AJ Fusion of 2 or more Lumbar Vertebral Joints with Interbody Fusion Device, Posterior Approach, Anterior Column, Open Approach (ICD-10-PCS; principal; 2019-02-23 09:15)
PROC: 30233H0 Transfusion of Autologous Whole Blood into Peripheral Vein, Percutaneous Approach (ICD-10-PCS; principal; 2019-02-23 09:15)
DX: M48.061 Spinal stenosis, lumbar region without neurogenic claudication (principal); M51.16 Intervertebral disc disorders with radiculopathy, lumbar region; Z79.1 Long term (current) use of non-steroidal anti-inflammatories (NSAID); Z79.899 Other long term (current) drug therapy; Z88.0 Allergy status to penicillin; Z82.49 Family history of ischemic heart disease and other diseases of the circulatory system; Z87.891 Personal history of nicotine dependence
CPT/HCPCS: 72100; 80048; 85025; 86850; 86891; 86900; 86901

== ENCOUNTER → 2020-09-21 | Outpatient (CLI) | payer MEDICARE, OTHER ==
--- NOTE | 2020-09-21 19:56 | CTL ---
EXAMINATION TYPE: CT Low Dose Lung DATE OF EXAM ORDERED: 09/21/2020 HISTORY: Personal history of tobacco use. Lung cancer screening CT DLP: [address] CTDI: 1.61 mGy Automated exposure control for dose reduction was used. SCREENING VISIT: Yes COMPARISON: 02/17/2019 chest radiograph TECHNIQUE: Low dose computed tomography scan was performed through the chest at 1 mm thick sections a nd reconstructed images in the coronal plane at [address] DIAGNOSTIC QUALITY: Satisfactory FINDINGS: LUNG NODULES: None. Few calcified granulomas. LUNGS: COPD: Severity: Moderate centrilobular emphysema Fibrosis: Severity: None Lymph nodes: No lymphadenopathy Other findings: None RIGHT PLEURAL SPACE: Effusion: None Calcification: None Thickening: Moderate right apical and upper posterior pleural thickening Pneumothorax: None LEFT PLEURAL SPACE: Effusion: None Calcification: None Thickening: Mild left apical Pneumothorax: None HEART: Heart Size: Normal Coronary calcification: None Pericardial effusion: None OTHER FINDINGS: Upper abdomen: Unremarkable and suboptimally visualized due to noise Bony thorax: Mild degenerative changes of the spine Supraclavicular region: Unremarkable Other: None IMPRESSION: 1. No suspicious pulmonary nodule. 2. Moderate centrilobular emphysema and biapical pleural scarring. CT LUNG RAD AND CT CHEST RECOMMENDATION: Lung-Rad 1 Negative: Continue annual screening with LDCT in 12 months. S Modifier (other clinically significant findings): None
== END | disposition home or self-care (01) ==
LOC: RADCTMAIN 15:16
PROVIDERS: ATTEND Family Medicine
DX: J43.2 Centrilobular emphysema (principal); J98.4 Other disorders of lung
CPT/HCPCS: 71271

== ENCOUNTER → 2023-09-01 | Outpatient (CLI) | payer MEDICARE ==
--- NOTE | 2023-09-03 22:50 | CT ---
EXAMINATION TYPE: CT chest wo con DATE OF EXAM: 09/01/2023 COMPARISON: Low-dose CT chest 09/21/2020 HISTORY: ILD CT DLP: 579.5 mGycm, Automated exposure control for dose reduction was used. CONTRAST: None TECHNIQUE: Axial images were obtained at 5 mm thick sections. Reconstructed images are reviewed on [employer] computer in the coronal plane. FINDINGS: Portion of the thyroid visualized is normal. No suspicious lung nodules or focal infiltrates are present. No peribronchial thickening bronchiectas is or pulmonary fibrosis evident no significant interval change between prone and supine imaging is e vident. Moderate emphysematous changes are present. No enlarged mediastinal or hilar adenopathy is evident. The ascending aorta diameter at the level o f the main pulmonary artery is 30.1 cm. The main pulmonary artery diameter at the bifurcation is 2.[address] sections are obtained through the upper abdomen. Abdomen is essentially unremarkable. IMPRESSION: 1. Emphysematous changes
== END | disposition home or self-care (01) ==
LOC: RADCTMAIN 13:02
PROVIDERS: ATTEND Internal Medicine Critical Care Medicine
DX: J84.9 Interstitial pulmonary disease, unspecified (principal)
CPT/HCPCS: 71250